=== PATIENT | female | born 1965 | race Caucasian/White ===

== ENCOUNTER 2019-03-13 23:09 | Inpatient (IN) | payer BC ==
[~2019-03-13] VITALS: Ht 160 cm; Wt 58.2 kg
[2019-03-14] VITALS (12 sets, daily range): BP systolic 96–129; BP diastolic 46–65; PULSE 48–82; RESP 17–18; Ht 160 cm; Wt 58.2 kg
[2019-03-14] MEDS ORDERED: METR-122 PO (01:53)
[2019-03-14] MEDS ORDERED: SIMV40TA2 PO (01:53)
[2019-03-14] MEDS: DEXTROSE 5%-0.9% NACL 1,000 ML IV SCH ×2 (04:50→17:10)
[2019-03-14] MEDS: PANTOPRAZOLE 40 MG INJ IV SCH (05:41)
[2019-03-14] MEDS: ACETAMINOPHEN 325 MG TAB PO PRN (06:28)
[2019-03-14] MEDS: morphine 2 MG INJ IV PRN ×3 (11:23→21:34)
[2019-03-14] MEDS: ONDANSETRON 4 MG INJ IV PRN (11:23)
--- NOTE | 2019-03-14 12:42 | QN ---
Documentation Comment SEEN AND EXAMINED JANAE BERNAL MD March 14, 2019 12:42
--- NOTE | 2019-03-14 13:57 | CONS ---
Assessment/Plan Assessment/Plan Hospital Course (Demo Recall) Summary Assessment and Plan: Assessment: Elevated lipase with presumed pancreatitis Upper abdominal pain Diarrhea Recently dx with H.pylori? Plan: Stool studies CT abd/pelvis with contrast Consider endoscopic evaluation pending results of imaging and clinical course NPO, push IVF Triglyceride/IgG labs ordered Monitor labs Pain management Patient is seen in collaboration with Dr. Alvarez CC: KARLOS ALVAREZ MD ; Consultation Date/Type/Reason Admit Date/Time March 14, 2019 at 00:55 Date/Time of Note DATE: 03/14/19 TIME: 13:43 Hx of Present Illness This is a 53-year-old female with no significant past medical history who presented to an outside hospital with complaints of epigastric pain x5 days. Patient states pain was associated with nausea, no vomiting, and with pain radiating to the back. She also complains of irregular bowel habits for the past 3 months from watery diarrhea to soft stool. She states she was recently diagnosed with H. pylori and started on metronidazole, However she feels this medication made her pain worse and has stopped taking. Evaluation the outside hospital patient had a complete abdominal ultrasound impression reads normal abdominal sonogram and bile duct measuring 2.9 mm and normal gallbladder tension of cholelithiasis labs were obtained showing normal LFTs, normal WBC and no evidence of anemia. Labs did show an elevated lipase. After been deemed stable she was transferred to [facility] for ins reasons. Additional labs were obtained here patient's lipase noted to be slightly over thousand with normocytic anemia, mild and normal LFTs. At time of evaluation patient continues to complain of upper abdominal pain some nausea. Discussed plan to obtain additional imaging and to follow-up on additional lab testing. She denies ETOH use, smoking, or drug use. Of note patient is scheduled to have EGD/Colonoscopy as an out-pt in about 3 months. Past Medical History Home Meds Reported Medications Metronidazole* (Metronidazole*) 500 Mg Tablet, 500 MG PO TID, TAB 03/14/19 Simvastatin* (Zocor*) 40 Mg Tablet, 40 MG PO QHS, #30 TAB 03/14/19 Medications Current Medications Pantoprazole (Protonix Iv) 40 mg DAILY@06 IV Last administered on 03/14/19at 05:41; Admin Dose 40 MG; Start 03/14/19 at 06:00 Ondansetron HCl (Zofran Inj) 4 mg Q6H PRN IV NAUSEA AND/OR VOMITING Last administered on 03/14/19 11:23; Admin Dose 4 MG; Start 03/14/19 at 05:00 Morphine Sulfate (morphine) 2 mg Q4H PRN IV SEVERE PAIN LEVEL 7-10 Last administered on 03/14/19 11:23; Admin Dose 2 MG; Start 03/14/19 at 05:00 Acetaminophen (Tylenol Tab) 650 mg Q6H PRN PO MILD PAIN(1-3)OR ELEVATED TEMP Last administered on 03/14/19 06:28; Admin Dose 650 MG; Start 03/14/19 at 05:00 Dextrose/Sodium Chloride 1,000 ml @ 100 mls/hr Q10H IV Last administered on 03/14/19 04:50; Admin Dose 100 MLS/HR; Start 03/14/19 at 05:00 Allergies: Coded Allergies: aspirin (Verified Allergy, Mild, UPSET STOMACH, 12/07/09) Social History Smoking Status: Never smoker Exam/Review of Systems Exam Vitals Vital Signs Date Temp Pulse Resp B/P (MAP) Pulse Ox O2 O2 Flow FiO2 Time Delivery Rate 03/14/19 63 12:04 03/14/19 97.9 17 118/65 97 11:31 (82) 03/14/19 Room Air 04:30 Intake and Output 03/13/19 03/13/19 03/14/19 1515:00 23:00 07:00 IntakeIntake Total 230 ml BalanceBalance 230 ml Exam PHYSICAL EXAMINATION: GENERAL: Well developed, well nourished, alert & oriented x 3, in no acute distress SKIN: No lesions, no stigmata chronic liver disease, no evidence of bleeding diathesis HEAD: Normocephalic, atraumatic, no tenderness. EYES: Pupils equal reactive to light and accommodation, full extraocular movements, sclera clear, non-icteric, no discharge. EARS/NOSE AND THROAT: Ears normal, nose normal, oropharynx normal, oral membranes well hydrated without lesions. NECK: Supple, no masses, thyroid normal, JVP within normal limits, carotids normal without bruits. CHEST: Inspection within normal limits. CARDIOVASCULAR: Heart: Regular rate and rhythm, no murmurs, gallops or rubs. Peripheral pulses present within normal limits, no cyanosis, clubbing or edemas. No pulsatile abdominal mass RESPIRATORY: Lungs clear to auscultation and percussion, no wheezing, no rubs GASTROINTESTINAL AND LIVER: Abdomen: Soft, upper abdominal tenderness, non- distended, no hernias, no masses, no organomegaly, no ascites, no guarding, no rebound tenderness, normoactive bowel sounds. Rectal: Deferred. GENITOURINARY:[Female genitalia within normal limits.] EXTREMITIES: No cyanosis, clubbing or edema. Results Result Diagram: 03/14/19 0536 03/14/19 0536 Results 24hrs Laboratory Tests Test 03/14/19 05:36 White Blood Count 10.6 Red Blood Count 3.96 L Hemoglobin 11.6 L Hematocrit 36.4 L Mean Corpuscular Volume 91.9 Mean Corpuscular Hemoglobin 29.3 Mean Corpuscular Hemoglobin Concent 31.9 L Red Cell Distribution Width 13.2 Platelet Count 342 Mean Platelet Volume 9.9 Immature Granulocytes % 0.400 Neutrophils % 57.3 Lymphocytes % 24.3 Monocytes % 8.4 Eosinophils % 8.9 H Basophils % 0.7 Nucleated Red Blood Cells % 0.0 Immature Granulocytes # 0.040 H Neutrophils # 6.1 Lymphocytes # 2.6 Monocytes # 0.9 Eosinophils # 0.9 H Basophils # 0.1 Nucleated Red Blood Cells # 0.0 Sodium Level 143 Potassium Level 4.2 Chloride Level 110 Carbon Dioxide Level 27 Anion Gap 6 Blood Urea Nitrogen 6 L Creatinine 0.71 Est Glomerular Filtrat Rate mL/min > 60 Glucose Level 103 Calcium Level 8.7 Total Bilirubin 0.6 Direct Bilirubin 0.00 Indirect Bilirubin 0.6 Aspartate Amino Transf (AST/SGOT) 18 Alanine Aminotransferase (ALT/SGPT) 18 Alkaline Phosphatase 93 Total Protein 6.6 Albumin 3.3 Globulin 3.30 H Albumin/Globulin Ratio 1.00 Lipase 1005 H Medications Medication Current Medications Pantoprazole (Protonix Iv) 40 mg DAILY@06 IV Last administered on 03/14/19at 05:41; Admin Dose 40 MG; Start 03/14/19 at 06:00 Ondansetron HCl (Zofran Inj) 4 mg Q6H PRN IV NAUSEA AND/OR VOMITING Last administered on 03/14/19at 11:23; Admin Dose 4 MG; Start 03/14/19 at 05:00 Morphine Sulfate (morphine) 2 mg Q4H PRN IV SEVERE PAIN LEVEL 7-10 Last administered on 03/14/19 11:23; Admin Dose 2 MG; Start 03/14/19 at 05:00 Acetaminophen (Tylenol Tab) 650 mg Q6H PRN PO MILD PAIN(1-3)OR ELEVATED TEMP Last administered on 03/14/19at 06:28; Admin Dose 650 MG; Start 03/14/19 at 05:00 Dextrose/Sodium Chloride 1,000 ml @ 100 mls/hr Q10H IV Last administered on 03/14/19at 04:50; Admin Dose 100 MLS/HR; Start 03/14/19 at 05:00 AUREA MANDUJANO March 14, 2019 13:56
--- NOTE | 2019-03-14 14:13 | HP ---
DATE OF ADMISSION: 03/14/2019 REASON FOR ADMISSION: Transfer from [facility] secondary to abdominal pain, pancreatitis. HISTORY OF PRESENTING ILLNESS: This is a 53-year-old female with a past medical history of gastritis , hyperlipidemia, went to the [facility] on 03/13/2019 secondary to severe epigastric pain f or past 1 week. According to the patient, she has been having severe epigastric pain for past 1 week intermittently on and off. She was diagnosed by her PMD to have positive Helicobacter pylori. She was supposed to see GI specialist in outpatient. She was supposed to have an EGD and colonoscopy as an outpatient; however it was in 4 months' time. Her pain was getting worse and she came to the [facility]. According to the patient, she has been also having some bright red blood per rectu m intermittently along with diarrhea for past 4 to 5 months. She has had colonoscopy before which arauz s been normal according to her many years ago. The patient does not take any aspirin. The patient d enies any alcohol intake. On arrival to [facility], the patient had lipase which was 423, s odium of 148, potassium 3.8, chloride 107, bicarbonate 22, BUN of 8, creatinine 0.65. LFTs showed to mirian bilirubin 0.2, alkaline phosphatase is 105. Troponin negative. UA was negative. The patient arauz d an abdominal ultrasound that showed liver 14 cm, gallbladder normal and it was normal abdominal son ogram and was transferred due to insurance reasons. PAST MEDICAL HISTORY: 1. History of gastritis. 2. History of hemorrhoids. ALLERGIES: ASPIRIN. MEDICATIONS TAKING AT HOME: 1. Flagyl. 2. Zocor. SOCIAL HISTORY: Denies any history of smoking, alcohol or any drug use. Lives in [place]. PAST SURGICAL HISTORY: 1. Oophorectomy. 2. Nose surgery. 3. Status post EGD and a colonoscopy. FAMILY HISTORY: Noncontributory. REVIEW OF SYSTEMS: The patient complained of severe epigastric pain. Denied any bright red blood pe r rectum. Denied any hematemesis, any melena. Also has been having some nausea. Denied any headach e, any blurry vision. Denies any chest pain, any shortness of breath, orthopnea, PND, lower extremit y edema. PHYSICAL EXAMINATION: VITAL SIGNS: Currently blood pressure 118/65, heart rate 59, afebrile, saturating 97% on room air. GENERAL: The patient is awake, alert, oriented, appears to be in mild distress secondary to pain. HEENT: Pupils are equal, round, reactive to light. No scleral icterus. NECK: Supple. No JVD. HEART: Regular rate and rhythm. LUNGS: Clear to auscultate bilaterally. ABDOMEN: Some tenderness present in the epigastric region. Positive bowel sounds. EXTREMITIES: No clubbing, cyanosis or edema. LABORATORY DATA: Show lipase of 1005. White count of 10.6, hemoglobin 11.6, platelet count of 342. DIAGNOSTIC DATA: Abdominal ultrasound done at an outside hospital showed normal. ASSESSMENT AND PLAN: This is a 53-year-old female who presented with: 1. Epigastric pain with elevated lipase. It could be secondary to pancreatitis; however no etiology at this time. The patient denies any history of alcohol abuse and there were no gallstones on abdom inal ultrasound. The patient also had history of gastritis in the past and also has history of Helic obacter pylori rectum. 2. Bright red blood per rectum. Rule out lower gastrointestinal bleed. 3. Epigastric pain could be secondary to pancreatitis/gastritis/peptic ulcer. 4. Hyperlipidemia. 5. Elevated lipase. 6. History of oophorectomy. PLAN: At this period of time, the patient is admitted to med/surg. The patient will be kept n.p.o., started on IV fluids, pain control, Zofran, PPI. GI consultation has already been obtained. The pa tient will likely need both EGD and colonoscopy. Rest of the treatment will depend on the patient's hospitalization course. Dictated By: JANAE MC/CHINTAN Conf#: [id number] DID#: [id number] CC: JHONY ARNOLD MD;*EndCC*
[2019-03-14] MEDS ORDERED: BARIUM SULF 2% 450 ML BTL (BERRY SMOOTHIE) PO ONE (15:00)
[2019-03-14] MEDS ORDERED: IOHEXOL 300MG/ML 150 ML BTL ONE (19:24)
[2019-03-14] MEDS ORDERED: SOD CHLORIDE 0.9% 100 ML ONE (19:24)
[2019-03-15] MEDS: DEXTROSE 5%-0.9% NACL 1,000 ML IV SCH ×3 (00:19→23:10)
[2019-03-15] MEDS: morphine 2 MG INJ IV PRN (00:19)
[2019-03-15 00:42] VITALS: BP 118/57; PULSE 66; RESP 16
[2019-03-15] MEDS: PANTOPRAZOLE 40 MG INJ IV SCH ×2 (06:04→23:10)
[2019-03-15] MEDS: ACETAMINOPHEN 325 MG TAB PO PRN (06:05)
[2019-03-15 08:01] VITALS: BP 92/46; PULSE 71; RESP 20
[2019-03-15 10:43] VITALS: BP 99/46; PULSE 55; RESP 18
--- NOTE | 2019-03-15 13:35 | PN ---
Date/Time of Note Date/Time of Note DATE: 03/15/19 TIME: 13:31 Assessment/Plan VTE Prophylaxis Risk score (from Nsg)>0 risk: 1 SCD applied (from Nsg): Yes Pharmacological prophylaxis: other (scds) Lines/Catheters IV Catheter Type (from Nrsg): Peripheral IV Urinary Cath still in place: No Assessment/Plan Hospital Course Assessment: Elevated lipase with presumed pancreatitis -Lipase down today -Normal amylase -Unremarkable pancreas on CT with contrast Upper abdominal pain Diarrhea -Mild generalized left colonic wall thickening suggests a nonspecific colitis. On CT scan -CDIFF - negative Recently dx with H.pylori? Plan: Pt continues to c/o epigastric pain- described as burning/acid- increased PPI to BID Findings of CT scan noted- will plan for EGD/Colonoscopy tomorrow (03/16/19) Discussed benefits/risks of sedation and procedure- understanding was verbalized and agreed to move forward with procedure Monitor labs Pain management Patient is seen in collaboration with Dr. Alvarez Subjective: Course reviewed with nursing staff Patient interviewed and examined All labs, imaging and other results reviewed The patient resting in bed, continues to c/o epigastric pain, less diarrhea noted. Discussed results of CT scan CDIFF neg- No c/o n/v , family at bedside. Exam PHYSICAL EXAMINATION: GENERAL: Well developed, well nourished, alert & oriented x 3, in no acute distress SKIN: No lesions, no stigmata chronic liver disease, no evidence of bleeding diathesis HEAD: Normocephalic, atraumatic, no tenderness. EYES: Pupils equal reactive to light and accommodation, full extraocular movements, sclera clear, non-icteric, no discharge. EARS/NOSE AND THROAT: Ears normal, nose normal, oropharynx normal, oral membranes well hydrated without lesions. NECK: Supple, no masses, thyroid normal, JVP within normal limits, carotids no rmal without bruits. CHEST: Inspection within normal limits. CARDIOVASCULAR: Heart: Regular rate and rhythm, no murmurs, gallops or rubs. Peripheral pulses present within normal limits, no cyanosis, clubbing or edemas. No pulsatile abdominal mass RESPIRATORY: Lungs clear to auscultation and percussion, no wheezing, no rubs GASTROINTESTINAL AND LIVER: Abdomen: Soft, upper abdominal tenderness, non- distended, no hernias, no masses, no organomegaly, no ascites, no guarding, no rebound tenderness, normoactive bowel sounds. Rectal: Deferred. GENITOURINARY:[Female genitalia within normal limits.] EXTREMITIES: No cyanosis, clubbing or edema. Result Diagram: 03/15/1952403/15/19524 Results 24hrs Laboratory Tests Test 03/14/19 14:00 03/15/19 05:25 Prothrombin Time 12.7 Prothrombin Time Ratio 1.0 INR International Normalized Ratio 0.94 White Blood Count 8.5 Red Blood Count 3.96 L Hemoglobin 11.6 L Hematocrit 36.0 L Mean Corpuscular Volume 90.9 Mean Corpuscular Hemoglobin 29.3 Mean Corpuscular Hemoglobin Concent 32.2 Red Cell Distribution Width 13.2 Platelet Count 333 Mean Platelet Volume 10.0 Immature Granulocytes % 0.400 Neutrophils % 58.3 Lymphocytes % 24.5 Monocytes % 9.6 Eosinophils % 6.7 Basophils % 0.5 Nucleated Red Blood Cells % 0.0 Immature Granulocytes # 0.030 Neutrophils # 4.9 Lymphocytes # 2.1 Monocytes # 0.8 Eosinophils # 0.6 H Basophils # 0.0 Nucleated Red Blood Cells # 0.0 Sodium Level 141 Potassium Level 3.9 Chloride Level 109 Carbon Dioxide Level 26 Anion Gap 6 Blood Urea Nitrogen 3 L Creatinine 0.69 Est Glomerular Filtrat Rate mL/min > 60 Glucose Level 103 Calcium Level 8.6 Phosphorus Level 4.0 Magnesium Level 2.0 Total Bilirubin 0.6 Direct Bilirubin 0.00 Indirect Bilirubin 0.6 Aspartate Amino Transf (AST/SGOT) 17 Alanine Aminotransferase (ALT/SGPT) 18 Alkaline Phosphatase 82 Total Protein 6.3 Albumin 3.2 L Globulin 3.10 Albumin/Globulin Ratio 1.03 Triglycerides Level 95 Cholesterol Level 122 LDL Cholesterol, Calculated 84 HDL Cholesterol 19 L Cholesterol/HDL Ratio 6.4 Amylase Level 99 Lipase 594 H Exam/Review of Systems Exam Vitals Vital Signs Date Temp Pulse Resp B/P (MAP) Pulse Ox O2 O2 Flow FiO2 Time Delivery Rate 03/15/19 98.2 55 18 99/46 (63) 96 Room Air 10:43 Intake and Output 03/14/19 03/14/19 03/15/19 1515:00 23:00 07:00 IntakeIntake Total 1440 ml 500 ml BalanceBalance 1440 ml 500 ml Results Results 24hrs Laboratory Tests Test 03/14/19 14:00 03/15/19 05:25 Prothrombin Time 12.7 Prothrombin Time Ratio 1.0 INR International Normalized Ratio 0.94 White Blood Count 8.5 Red Blood Count 3.96 L Hemoglobin 11.6 L Hematocrit 36.0 L Mean Corpuscular Volume 90.9 Mean Corpuscular Hemoglobin 29.3 Mean Corpuscular Hemoglobin Concent 32.2 Red Cell Distribution Width 13.2 Platelet Count 333 Mean Platelet Volume 10.0 Immature Granulocytes % 0.400 Neutrophils % 58.3 Lymphocytes % 24.5 Monocytes % 9.6 Eosinophils % 6.7 Basophils % 0.5 Nucleated Red Blood Cells % 0.0 Immature Granulocytes # 0.030 Neutrophils # 4.9 Lymphocytes # 2.1 Monocytes # 0.8 Eosinophils # 0.6 H Basophils # 0.0 Nucleated Red Blood Cells # 0.0 Sodium Level 141 Potassium Level 3.9 Chloride Level 109 Carbon Dioxide Level 26 Anion Gap 6 Blood Urea Nitrogen 3 L Creatinine 0.69 Est Glomerular Filtrat Rate mL/min > 60 Glucose Level 103 Calcium Level 8.6 Phosphorus Level 4.0 Magnesium Level 2.0 Total Bilirubin 0.6 Direct Bilirubin 0.00 Indirect Bilirubin 0.6 Aspartate Amino Transf (AST/SGOT) 17 Alanine Aminotransferase (ALT/SGPT) 18 Alkaline Phosphatase 82 Total Protein 6.3 Albumin 3.2 L Globulin 3.10 Albumin/Globulin Ratio 1.03 Triglycerides Level 95 Cholesterol Level 122 LDL Cholesterol, Calculated 84 HDL Cholesterol 19 L Cholesterol/HDL Ratio 6.4 Amylase Level 99 Lipase 594 H Medications Medication Current Medications Pantoprazole (Protonix Iv) 40 mg DAILY@06 IV Last administered on 03/15/19at 06:04; Admin Dose 40 MG; Start 03/14/19 at 06:00 Ondansetron HCl (Zofran Inj) 4 mg Q6H PRN IV NAUSEA AND/OR VOMITING Last administered on 03/14/19at 11:23; Admin Dose 4 MG; Start 03/14/19 at 05:00 Morphine Sulfate (morphine) 2 mg Q4H PRN IV SEVERE PAIN LEVEL 7-10 Last administered on 03/15/19at 00:19; Admin Dose 2 MG; Start 03/14/19 at 05:00 Acetaminophen (Tylenol Tab) 650 mg Q6H PRN PO MILD PAIN(1-3)OR ELEVATED TEMP Last administered on 03/15/19at 06:05; Admin Dose 650 MG; Start 03/14/19 at 05:00 Dextrose/Sodium Chloride 1,000 ml @ 100 mls/hr Q10H IV Last administered on 03/15/19at 11:33; Admin Dose 100 MLS/HR; Start 03/14/19 at 05:00 AUREA MANDUJANO March 15, 2019 13:35
[2019-03-15] MEDS ORDERED: BISACODYL (EC) 5 MG TAB PO ONE (15:00)
[2019-03-15] MEDS ORDERED: PANTOPRAZOLE 40 MG INJ IV ONE (15:00)
--- NOTE | 2019-03-15 15:49 | PN ---
Date/Time of Note Date/Time of Note DATE: 03/15/19 TIME: 15:47 Assessment/Plan VTE Prophylaxis Risk score (from Ns)>0 risk: 1 SCD applied (from Ns): Yes Pharmacological prophylaxis: NA/contraindicated Pharm contraindication: low risk/ambulating Lines/Catheters IV Catheter Type (from [facility]): Peripheral IV Urinary Cath still in place: No Assessment/Plan Assessment/Plan his is a 53-year-old female who presented with: 1. Epigastric pain with elevated lipase. It could be secondary to pancreatitis; however no etiology at this time. The patient denies any history of alcohol abuse and there were no gallstones on abdominal ultrasound. The patient also had history of gastritis in the past and also has history of Helicobacter pylori rectum. 2. Bright red blood per rectum. Rule out lower gastrointestinal bleed./colitis 3. Epigastric pain could be secondary to pancreatitis/gastritis/peptic ulcer. 4. Hyperlipidemia. 5. Elevated lipase. 6. History of oophorectomy. plan - lipase improved, pain resolved - lipid panel nega and IG pending - cld - egd and colonoscopy tmw - PPI - C diff neg Result Diagram: 03/15/19 0525 03/15/19 0525 Results 24hrs Laboratory Tests Test 03/15/19 05:25 White Blood Count 8.5 Red Blood Count 3.96 L Hemoglobin 11.6 L Hematocrit 36.0 L Mean Corpuscular Volume 90.9 Mean Corpuscular Hemoglobin 29.3 Mean Corpuscular Hemoglobin Concent 32.2 Red Cell Distribution Width 13.2 Platelet Count 333 Mean Platelet Volume 10.0 Immature Granulocytes % 0.400 Neutrophils % 58.3 Lymphocytes % 24.5 Monocytes % 9.6 Eosinophils % 6.7 Basophils % 0.5 Nucleated Red Blood Cells % 0.0 Immature Granulocytes # 0.030 Neutrophils # 4.9 Lymphocytes # 2.1 Monocytes # 0.8 Eosinophils # 0.6 H Basophils # 0.0 Nucleated Red Blood Cells # 0.0 Sodium Level 141 Potassium Level 3.9 Chloride Level 109 Carbon Dioxide Level 26 Anion Gap 6 Blood Urea Nitrogen 3 L Creatinine 0.69 Est Glomerular Filtrat Rate mL/min > 60 Glucose Level 103 Calcium Level 8.6 Phosphorus Level 4.0 Magnesium Level 2.0 Total Bilirubin 0.6 Direct Bilirubin 0.00 Indirect Bilirubin 0.6 Aspartate Amino Transf (AST/SGOT) 17 Alanine Aminotransferase (ALT/SGPT) 18 Alkaline Phosphatase 82 Total Protein 6.3 Albumin 3.2 L Globulin 3.10 Albumin/Globulin Ratio 1.03 Triglycerides Level 95 Cholesterol Level 122 LDL Cholesterol, Calculated 84 HDL Cholesterol 19 L Cholesterol/HDL Ratio 6.4 Amylase Level 99 Lipase 594 H Subjective 24 Hr Interval Summary Free Text/Dictation feels better no diarrhoea Exam/Review of Systems Exam Vitals Vital Signs Date Temp Pulse Resp B/P (MAP) Pulse Ox O2 O2 Flow FiO2 Time Delivery Rate 03/15/19 98.2 55 18 99/46 (63) 96 Room Air 10:43 Intake and Output 03/14/19 03/14/19 03/15/19 1515:00 23:00 07:00 IntakeIntake Total 1440 ml 500 ml BalanceBalance 1440 ml 500 ml Exam ENERAL: The patient is awake, alert, oriented, appears to be in mild distress secondary to pain. HEENT: Pupils are equal, round, reactive to light. No scleral icterus. NECK: Supple. No JVD. HEART: Regular rate and rhythm. LUNGS: Clear to auscultate bilaterally. ABDOMEN: no tenderness. Positive bowel sounds. EXTREMITIES: No clubbing, cyanosis or edema. Results Results 24hrs Laboratory Tests Test 03/15/19 05:25 White Blood Count 8.5 Red Blood Count 3.96 L Hemoglobin 11.6 L Hematocrit 36.0 L Mean Corpuscular Volume 90.9 Mean Corpuscular Hemoglobin 29.3 Mean Corpuscular Hemoglobin Concent 32.2 Red Cell Distribution Width 13.2 Platelet Count 333 Mean Platelet Volume 10.0 Immature Granulocytes % 0.400 Neutrophils % 58.3 Lymphocytes % 24.5 Monocytes % 9.6 Eosinophils % 6.7 Basophils % 0.5 Nucleated Red Blood Cells % 0.0 Immature Granulocytes # 0.030 Neutrophils # 4.9 Lymphocytes # 2.1 Monocytes # 0.8 Eosinophils # 0.6 H Basophils # 0.0 Nucleated Red Blood Cells # 0.0 Sodium Level 141 Potassium Level 3.9 Chloride Level 109 Carbon Dioxide Level 26 Anion Gap 6 Blood Urea Nitrogen 3 L Creatinine 0.69 Est Glomerular Filtrat Rate mL/min > 60 Glucose Level 103 Calcium Level 8.6 Phosphorus Level 4.0 Magnesium Level 2.0 Total Bilirubin 0.6 Direct Bilirubin 0.00 Indirect Bilirubin 0.6 Aspartate Amino Transf (AST/SGOT) 17 Alanine Aminotransferase (ALT/SGPT) 18 Alkaline Phosphatase 82 Total Protein 6.3 Albumin 3.2 L Globulin 3.10 Albumin/Globulin Ratio 1.03 Triglycerides Level 95 Cholesterol Level 122 LDL Cholesterol, Calculated 84 HDL Cholesterol 19 L Cholesterol/HDL Ratio 6.4 Amylase Level 99 Lipase 594 H Medications Medication Current Medications Ondansetron HCl (Zofran Inj) 4 mg Q6H PRN IV NAUSEA AND/OR VOMITING Last administered on 03/14/19at 11:23; Admin Dose 4 MG; Start 03/14/19 at 05:00 Morphine Sulfate (morphine) 2 mg Q4H PRN IV SEVERE PAIN LEVEL 7-10 Last administered on 03/15/19at 00:19; Admin Dose 2 MG; Start 03/14/19 at 05:00 Acetaminophen (Tylenol Tab) 650 mg Q6H PRN PO MILD PAIN(1-3)OR ELEVATED TEMP Last administered on 03/15/19at 06:05; Admin Dose 650 MG; Start 03/14/19 at 05:00 Dextrose/Sodium Chloride 1,000 ml @ 100 mls/hr Q10H IV Last administered on 03/15/19at 11:33; Admin Dose 100 MLS/HR; Start 03/14/19 at 05:00 Magnesium Citrate (Citroma) 300 ml ONCE ONCE PO ; Start 03/15/19 at 17:30; Stop 03/15/19 at 17:31 Polyethylene Glycol (Miralax) 119 gm ONCE ONCE PO ; Start 03/15/19 at 18:30; Stop 03/15/19 at 18:31 Polyethylene Glycol (Miralax) 119 gm 2ND DOSE (GI PREP) ONCE PO ; Start 03/16/19 at 06:00; Stop 03/16/19 at 06:01 Bisacodyl (Dulcolax) 10 mg 2ND DOSE (GI PREP) ONCE PO ; Start 03/16/19 at 08:00; Stop 03/16/19 at 08:01 Pantoprazole (Protonix Iv) 40 mg BID@06,18 IV ; Start 03/15/19 at 21:00 JANAE BERNAL MD March 15, 2019 15:49
[2019-03-15] MEDS ORDERED: MAGNESIUM CITRATE 300 ML BTL PO ONE (17:30)
--- NOTE | 2019-03-15 17:34 | PREAC ---
Date/Time of Note Date/Time of Note DATE: 03/15/19 TIME: 17:33 Anesthesia Eval and Record Evaluation Time Pre-Procedure Interview DATE: 03/15/19 TIME: 17:33 Age 53 Sex female NPO: 8 hrs Preoperative diagnosis epigastric pain Planned procedure EGD / colonoscopy Past Medical History Past Medical History: Includes Cardio: Dyslipidemia Surgery & Anesthesia Issues No known issue Meds Anticoagulation: No Beta Caden within 24 hr: No Reason Beta Caden not given: Pt. not on B-Caden Reported Medications Metronidazole* (Metronidazole*) 500 Mg Tablet, 500 MG PO TID, TAB 03/14/19 Simvastatin* (Zocor*) 40 Mg Tablet, 40 MG PO QHS, #30 TAB 03/14/19 Current Medications Ondansetron HCl (Zofran Inj) 4 mg Q6H PRN IV NAUSEA AND/OR VOMITING Last administered on 03/14/19at 11:23; Admin Dose 4 MG; Start 03/14/19 at 05:00 Morphine Sulfate (morphine) 2 mg Q4H PRN IV SEVERE PAIN LEVEL 7-10 Last adm inistered on 03/15/19at 00:19; Admin Dose 2 MG; Start 03/14/19 at 05:00 Acetaminophen (Tylenol Tab) 650 mg Q6H PRN PO MILD PAIN(1-3)OR ELEVATED TEMP Last administered on 03/15/19at 06:05; Admin Dose 650 MG; Start 03/14/19 at 05:00 Dextrose/Sodium Chloride 1,000 ml @ 50 mls/hr Q20H IV Last administered on 03/15/19at 11:33; Admin Dose 100 MLS/HR; Start 03/14/19 at 05:00 Polyethylene Glycol (Miralax) 119 gm ONCE ONCE PO ; Start 03/15/19 at 18:30; Stop 03/15/19 at 18:31 Polyethylene Glycol (Miralax) 119 gm 2ND DOSE (GI PREP) ONCE PO ; Start 03/16/19 at 06:00; Stop 03/16/19 at 06:01 Bisacodyl (Dulcolax) 10 mg 2ND DOSE (GI PREP) ONCE PO ; Start 03/16/19 at 08:00; Stop 03/16/19 at 08:01 Pantoprazole (Protonix Iv) 40 mg BID@06,18 IV ; Start 5/21/19 at 21:00 Meds reviewed: Yes Allergies Coded Allergies: aspirin (Verified Allergy, Mild, UPSET STOMACH, 12/07/09) Allergies Reviewed: Yes Labs/Studies Labs Reviewed: Reviewed by anesthesiologist Result Diagram: 03/15/1952403/15/19 05 Laboratory Tests 03/15/19 05:25 test: N/A Studies: ECG Pre-procedure Exam Last vitals Vital Signs Date Temp Pulse Resp B/P (MAP) Pulse Ox O2 O2 Flow FiO2 Time Delivery Rate 03/15/19 98.2 55 18 99/46 (63) 96 Room Air 10:43 Airway: Adequate mouth opening Mallampati: Mallampati II Teeth: Normal Lung: Normal Heart: Normal ASA Physical Status ASA physical status: 2 Emergency: None Planned Anesthetic General/MAC: MAC Pre-operative Attestations Prior to commencing anesthesia and surgery, the patient was re-evaluated, there was verification of: *The patient's identity *The results of appropriate recent lab work and preoperative vital signs *The above evaluation not changing prior to induction *Anesthetic plan, risk benefits, alternative and complications discussed with patient/family; questions answered; patient/family understands, accepts and wishes to proceed. WARREN DELACRUZ March 15, 2019 17:34
[2019-03-15] MEDS ORDERED: PANTOPRAZOLE 40 MG INJ IV SCH (18:00)
[2019-03-15] MEDS ORDERED: POLYETHYLENE GLYCOL 3350 119 GM POWDER PO ONE (18:30)
[2019-03-15 19:52] VITALS: BP 102/60; PULSE 73; RESP 18
[2019-03-16] VITALS (12 sets, daily range): BP systolic 102–127; BP diastolic 43–59; PULSE 53–73; RESP 15–25
[2019-03-16] MEDS: PANTOPRAZOLE 40 MG INJ IV SCH ×2 (05:55→18:22)
[2019-03-16] MEDS ORDERED: POLYETHYLENE GLYCOL 3350 119 GM POWDER PO ONE (06:00)
[2019-03-16] MEDS ORDERED: BISACODYL (EC) 5 MG TAB PO ONE (08:00)
[2019-03-16] MEDS: ONDANSETRON 4 MG INJ IV PRN (08:31)
--- NOTE | 2019-03-16 13:49 | PN ---
Date/Time of Note Date/Time of Note DATE: 03/16/19 TIME: 13:47 Assessment/Plan VTE Prophylaxis Risk score (from Ns)>0 risk: 2 SCD applied (from Ns): Yes Pharmacological prophylaxis: NA/contraindicated Pharm contraindication: low risk/ambulating Lines/Catheters [facility]from [facility]): Peripheral IV Urinary Cath still in place: No Assessment/Plan Assessment/Plan his is a 53-year-old female who presented with: 1. Epigastric pain with elevated lipase. It could be secondary to pancreatitis; however no etiology at this time. The patient denies any history of alcohol abuse and there were no gallstones on abdominal ultrasound. The patient also had history of gastritis in the past and also has history of Helicobacter pylori rectum. 2. Bright red blood per rectum. Rule out lower gastrointestinal bleed./colitis 3. Epigastric pain could be secondary to pancreatitis/gastritis/peptic ulcer. 4. Hyperlipidemia. 5. Elevated lipase. 6. History of oophorectomy. plan - EGD and colonoscopy today at 5 - PPI/zofran - iv fluids - C diff neg Result Diagram: 03/15/1925 03/15/1925 Results 24hrs Laboratory Tests Test 03/16/19 05:35 Lipase 437 H Subjective 24 Hr Interval Summary Free Text/Dictation Patient had a lot of bowel movements last night as was prepped for colonoscopy No nausea vomiting Exam/Review of Systems Exam Vitals Vital Signs Date Temp Pulse Resp B/P (MAP) Pulse Ox O2 O2 Flow FiO2 Time Delivery Rate 03/16/19 97.7 63 15 112/53 96 Room Air 07:26 (72) Exam ENERAL: The patient is awake, alert, oriented, HEENT: Pupils are equal, round, reactive to light. No scleral icterus. NECK: Supple. No JVD. HEART: Regular rate and rhythm. LUNGS: Clear to auscultate bilaterally. ABDOMEN: no tenderness. Positive bowel sounds. EXTREMITIES: No clubbing, cyanosis or edema. Results Results 24hrs Laboratory Tests Test 03/16/19 05:35 Lipase 437 H Medications Medication Current Medications Ondansetron HCl (Zofran Inj) 4 mg Q6H PRN IV NAUSEA AND/OR VOMITING Last administered on 03/16/19at 08:31; Admin Dose 4 MG; Start 03/14/19 at 05:00 Morphine Sulfate (morphine) 2 mg Q4H PRN IV SEVERE PAIN LEVEL 7-10 Last administered on 03/15/19at 00:19; Admin Dose 2 MG; Start 03/14/19 at 05:00 Acetaminophen (Tylenol Tab) 650 mg Q6H PRN PO MILD PAIN(1-3)OR ELEVATED TEMP Last administered on 03/15/19at 06:05; Admin Dose 650 MG; Start 03/14/19 at 05:00 Dextrose/Sodium Chloride 1,000 ml @ 50 mls/hr Q20H IV Last administered on 03/15/19at 23:10; Admin Dose 50 MLS/HR; Start 03/14/19 at 05:00 Pantoprazole (Protonix Iv) 40 mg BID@06,18 IV Last administered on 03/16/19at 05:55; Admin Dose 40 MG; Start 03/15/19 at 21:00 JANAE BERNAL MD March 16, 2019 13:49
[2019-03-16] MEDS ORDERED: PROPOFOL 60 ML ONE (17:21)
--- NOTE | 2019-03-16 17:22 | PAC ---
Date/Time of Note Date/Time of Note DATE: 03/16/19 TIME: 17:22 Post-Anesthesia Notes Post-Anesthesia Note Last documented vital signs Vital Signs Date Temp Pulse Resp B/P (MAP) Pulse Ox O2 O2 Flow FiO2 Time Delivery Rate 03/16/19 98.3 73 16 111/53 95 Room Air 17:30 (72) Activity: WNL Respiratory function: WNL Cardiovascular function: WNL Mental status: Baseline Pain reasonably controlled: Yes Hydration appropriate: Yes Nausea/Vomiting absent: Yes GODWIN POSADA MD March 16, 2019 17:22
[2019-03-16] MEDS ORDERED: FENTAnyl 50 MCG/ML VIAL IV PRN (17:30)
[2019-03-16] MEDS ORDERED: LABETALOL HCL 20MG INJ IV PRN (17:30)
[2019-03-16] MEDS ORDERED: EPHEDrine 25 MG/5 ML SYG IV PRN (17:30)
[2019-03-16] MEDS ORDERED: HYDROmorphONE 1 MG/5 ML IV SYRINGE IV PRN (17:30)
[2019-03-16] MEDS ORDERED: ONDANSETRON 4 MG INJ IV PRN (17:30)
[2019-03-16] MEDS ORDERED: BARIUM SULF 2% 450 ML BTL (BERRY SMOOTHIE) PO ONE (18:30)
[2019-03-16] MEDS: ACETAMINOPHEN 325 MG TAB PO PRN (18:32)
[2019-03-16] MEDS: MESALAMINE (SR) 250 MG CAP PO SCH (20:23)
[2019-03-16] MEDS: DEXTROSE 5%-0.9% NACL 1,000 ML IV SCH (20:24)
[2019-03-17 02:00] VITALS: BP 122/70; PULSE 81; RESP 19
[2019-03-17] MEDS: PANTOPRAZOLE 40 MG INJ IV SCH (06:27)
[2019-03-17 07:29] VITALS: BP 119/54; PULSE 80; RESP 17
[2019-03-17] MEDS: MESALAMINE (SR) 250 MG CAP PO SCH ×4 (09:23→21:00)
[2019-03-17] MEDS: BUDESONIDE (EC) 3 MG CAP PO SCH (09:23)
[2019-03-17] MEDS: ACETAMINOPHEN 325 MG TAB PO PRN ×2 (09:24→21:05)
--- NOTE | 2019-03-17 12:21 | PN ---
Date/Time of Note Date/Time of Note DATE: 03/17/19 TIME: 12:05 Assessment/Plan VTE Prophylaxis Risk score (from Ns)>0 risk: 1 SCD applied (from Ns): Yes Pharmacological prophylaxis: other (scds) Lines/Catheters IV [facility]ter Type (from [facility]): Peripheral IV Urinary Cath still in place: No Assessment/Plan Hospital Course Assessment: Elevated lipase with presumed pancreatitis -Lipase down today -Normal amylase -Unremarkable pancreas on CT with contrast Upper abdominal pain EGD 03/16/2019 Mild gastritis. Rule out internal infection. Biopsies obtained Otherwise normal EGD Diarrhea -Mild generalized left colonic wall thickening suggests a nonspecific colitis. On CT scan -CDIFF - negative/stool cx- coliform Colonoscopy 03/16/2019 Moderately active colitis involving the left side of the colon with skip areas and again noted in the cecum. Distribution most consistent with Crohn's disease Ascending and transverse colon within normal limits Terminal ileum within normal limits Multiple biopsies obtained. Moderate-sized internal hemorrhoids Recently dx with H.pylori? Plan: CT enterography- pending Budesonide/mesalamine PPI changed to p.o. daily Await biopsy results Patient is seen in collaboration with Dr. Alvarez Subjective: Course reviewed with nursing staff Patient interviewed and examined All labs, imaging and other results reviewed Discussed results of EGD/colonoscopy- pt to be NPO for Ct enterography today No c/o n/v pt does have some abdominal pain 2/2 to colitis Exam PHYSICAL EXAMINATION: GENERAL: Alert & oriented x 3, in no acute distress SKIN: No lesions, no stigmata chronic liver disease, no evidence of bleeding diathesis HEAD: Normocephalic, atraumatic, no tenderness. EYES: Pupils equal reactive to light and accommodation, full extraocular movements, sclera clear, non-icteric, no discharge. EARS/NOSE AND THROAT: Ears normal, nose normal, oropharynx normal, oral membranes well hydrated without lesions. NECK: Supple, no masses, thyroid normal, JVP within normal limits, carotids normal without bruits. CHEST: Inspection within normal limits. CARDIOVASCULAR: Heart: Regular rate and rhythm, no murmurs, gallops or rubs. Peripheral pulses present within normal limits, no cyanosis, clubbing or edemas. No pulsatile abdominal mass RESPIRATORY: Lungs clear to auscultation and percussion, no wheezing, no rubs GASTROINTESTINAL AND LIVER: Abdomen: Soft, upper abdominal tenderness, non- distended, no hernias, no masses, no organomegaly, no ascites, no guarding, no rebound tenderness, normoactive bowel sounds. Rectal: Deferred. GENITOURINARY:[Female genitalia within normal limits.] EXTREMITIES: No cyanosis, clubbing or edema. Result Diagram: 03/15/1952403/15/19524 Exam/Review of Systems Exam Vitals Vital Signs Date Temp Pulse Resp B/P (MAP) Pulse Ox O2 O2 Flow FiO2 Time Delivery Rate 03/17/19 98.3 10:09 03/17/19 80 17 119/54 98 Room Air 07:29 (75) 03/16/19 10 16:40 Intake and Output 03/16/19 03/16/19 03/17/19 1515:00 23:00 07:00 IntakeIntake Total 500 ml 433 ml BalanceBalance 500 ml 433 ml Medications Medication Current Medications Ondansetron HCl (Zofran Inj) 4 mg Q6H PRN IV NAUSEA AND/OR VOMITING Last administered on 03/16/19 08:31; Admin Dose 4 MG; Start 03/14/19 at 05:00 Morphine Sulfate (morphine) 2 mg Q4H PRN IV SEVERE PAIN LEVEL 7-10 Last adm inistered on 03/15/19 00:19; Admin Dose 2 MG; Start 03/14/19 at 05:00 Acetaminophen (Tylenol Tab) 650 mg Q6H PRN PO MILD PAIN(1-3)OR ELEVATED TEMP Last administered on 03/17/19 09:24; Admin Dose 650 MG; Start 03/14/19 at 05:00 Pantoprazole (Protonix Iv) 40 mg BID@06,18 IV Last administered on 03/17/19 06:27; Admin Dose 40 MG; Start 03/15/19 at 21:00 Mesalamine (Pentasa) 1,000 mg QID PO Last administered on 03/17/19 09:23; Admin Dose 1,000 MG; Start 03/16/19 at 21:00 Budesonide (Entocort Ec) 9 mg DAILY PO Last administered on 03/17/19 09:23; Admin Dose 9 MG; Start 03/17/19 at 09:00 AUREA MANDUJANO March 17, 2019 12:21
--- NOTE | 2019-03-17 13:48 | PN ---
Date/Time of Note Date/Time of Note DATE: 03/17/19 TIME: 13:47 Assessment/Plan VTE Prophylaxis Risk score (from [facility])>0 risk: 1 SCD applied (from [facility]): Yes Pharmacological prophylaxis: NA/contraindicated Pharm contraindication: surgical contra Lines/Catheters [facility] (from [facility]): Peripheral IV Urinary Cath still in place: No Assessment/Plan Hospital Course 1. Epigastric pain with elevated lipase. It could be secondary to pancreatitis; however no etiology at this time. The patient denies any history of alcohol abuse and there were no gallstones on abdominal ultrasound. The patient also had history of gastritis in the past and also has history of Helicobacter pylori rectum. 2. Bright red blood per rectum. Rule out lower gastrointestinal bleed./colitis 3. Epigastric pain could be secondary to pancreatitis/gastritis/peptic ulcer. 4. Hyperlipidemia. 5. Elevated lipase. 6. History of oophorectomy. 7. Hypochromic normocytic Anemia 8. Dyslipidemia Assessment/Plan - EGD and colonoscopy resulted a s aossible Cron's disease - PPI/zofran - iv fluids - C diff neg -CT enterography- pending -Budesonide/mesalamine -GI prophylaxis PPI p.o. daily -DVT proph. surg contrindication -Await biopsy results Result Diagram: 03/15/1952403/15/19524 Subjective 24 Hr Interval Summary Constitutional: no complaints Gastrointestinal: pain Exam/Review of Systems Exam Vitals Vital Signs Date Temp Pulse Resp B/P (MAP) Pulse Ox O2 O2 Flow FiO2 Time Delivery Rate 03/17/19 98.3 10:09 03/17/19 80 17 119/54 98 Room Air 07:29 (75) 03/16/19 10 16:40 Intake and Output 03/16/19 03/16/19 03/17/19 1515:00 23:00 07:00 IntakeIntake Total 500 ml 433 ml BalanceBalance 500 ml 433 ml Constitutional: alert, oriented Eyes: nl conjunctiva Respiratory: clear to auscultation Cardiovascular: regular rate and rhythm Gastrointestinal: soft, rebound or guarding Medications Medication Current Medications Ondansetron HCl (Zofran Inj) 4 mg Q6H PRN IV NAUSEA AND/OR VOMITING Last administered on 03/16/19at 08:31; Admin Dose 4 MG; Start 03/14/19 at 05:00 Morphine Sulfate (morphine) 2 mg Q4H PRN IV SEVERE PAIN LEVEL 7-10 Last administered on 03/15/19at 00:19; Admin Dose 2 MG; Start 03/14/19 at 05:00 Acetaminophen (Tylenol Tab) 650 mg Q6H PRN PO MILD PAIN(1-3)OR ELEVATED TEMP Last administered on 03/17/19at 09:24; Admin Dose 650 MG; Start 03/14/19 at 05:00 Mesalamine (Pentasa) 1,000 mg QID PO Last administered on 03/17/19at 12:26; Admin Dose 1,000 MG; Start 03/16/19 at 21:00 Budesonide (Entocort Ec) 9 mg DAILY PO Last administered on 03/17/19at 09:23; Admin Dose 9 MG; Start 03/17/19 at 09:00 Pantoprazole (Protonix Tab) 40 mg DAILY@06 PO ; Start 03/18/19 at 06:00 KELLY SILVA March 17, 2019 13:48
[2019-03-17 14:13] VITALS: BP 102/51; PULSE 66; RESP 16
[2019-03-17 19:53] VITALS: BP 90/50; PULSE 76; RESP 18
[2019-03-18 01:56] VITALS: BP 105/56; PULSE 67; RESP 18
[2019-03-18] MEDS ORDERED: AL HYDROX/MG HYDROX/SIMETH 30 ML CUP PO PRN (03:00)
[2019-03-18] MEDS ORDERED: PANTOPRAZOLE (EC) 40 MG TAB PO SCH (06:00)
[2019-03-18] MEDS ORDERED: BARIUM SULFATE 0.1% 450 ML BTL (VOLUMEN) PO ONE (07:30)
[2019-03-18] MEDS: MESALAMINE (SR) 250 MG CAP PO SCH ×2 (09:00→15:18)
[2019-03-18] MEDS: BUDESONIDE (EC) 3 MG CAP PO SCH (09:00)
[2019-03-18] MEDS ORDERED: SOD CHLORIDE 0.9% 100 ML ONE (09:02)
[2019-03-18] MEDS ORDERED: IOHEXOL 100 ML ONE (09:02)
[2019-03-18] MEDS ORDERED: GLUCAGON 1 MG INJ ONE (09:25)
[2019-03-18] MEDS ORDERED: GLUCAGON 1 MG INJ IV ONE (09:30)
--- NOTE | 2019-03-18 11:36 | PN ---
Date/Time of Note Date/Time of Note DATE: 03/18/19 TIME: 11:34 Assessment/Plan VTE Prophylaxis Risk score (from Ns)>0 risk: 1 SCD applied (from [facility] [place]): Yes SCD contraindicated: low risk/ambulating Pharmacological prophylaxis: NA/contraindicated Pharm contraindication: low risk/ambulating Lines/Catheters [facility] [place] Urinary Cath still in place: No Assessment/Plan Hospital Course 1. Epigastric pain with elevated lipase. It could be secondary to pancreatitis; however no etiology at this time. The patient denies any history of alcohol abuse and there were no gallstones on abdominal ultrasound. The patient also had history of gastritis in the past and also has history of Helicobacter pylori rectum. 2. Bright red blood per rectum. Rule out lower gastrointestinal bleed./colitis 3. Epigastric pain could be secondary to pancreatitis/gastritis/peptic ulcer. 4. Hyperlipidemia. 5. Elevated lipase. 6. History of oophorectomy. 7. Hypochromic normocytic Anemia 8. Dyslipidemia Assessment/Plan - EGD and colonoscopy resulted a s possible Cron's disease - PPI/zofran -biopsy results are seen, neg. for H .pylori - iv fluids - C diff neg. H pylori neg. -CT enterography-showed ulcerative colitis -c/w Budesonide/mesalamine -GI prophylaxis PPI p.o. daily -DVT proph. surg contraindication, ambulation. Result Diagram: 03/15/1952403/15/19 05 Subjective 24 Hr Interval Summary Gastrointestinal: pain, decreased appetite, nausea Exam/Review of Systems Exam Vitals Vital Signs Date Temp Pulse Resp B/P (MAP) Pulse Ox O2 O2 Flow FiO2 Time Delivery Rate 03/18/19 98.0 67 18 105/56 97 01:56 (72) 03/17/19 Room Air 14:13 03/16/19 10 16:40 Intake and Output 03/17/19 03/17/19 03/18/19 1515:00 23:00 07:00 IntakeIntake Total 400 ml BalanceBalance 400 ml Constitutional: alert, oriented Head: normocephalic Eyes: nl conjunctiva Cardiovascular: regular rate and rhythm Gastrointestinal: soft Medications Medication Current Medications Ondansetron HCl (Zofran Inj) 4 mg Q6H PRN IV NAUSEA AND/OR VOMITING Last administered on 03/16/19 08:31; Admin Dose 4 MG; Start 03/14/19 at 05:00 Morphine Sulfate (morphine) 2 mg Q4H PRN IV SEVERE PAIN LEVEL 7-10 Last administered on 03/15/19 00:19; Admin Dose 2 MG; Start 03/14/19 at 05:00 Acetaminophen (Tylenol Tab) 650 mg Q6H PRN PO MILD PAIN(1-3)OR ELEVATED TEMP Last administered on 03/17/19 21:05; Admin Dose 650 MG; Start 03/14/19 at 05:00 Mesalamine (Pentasa) 1,000 mg QID PO Last administered on 03/17/19 21:00; Admin Dose 1,000 MG; Start 03/16/19 at 21:00 Budesonide (Entocort Ec) 9 mg DAILY PO Last administered on 03/17/19 09:23; Admin Dose 9 MG; Start 03/17/19 at 09:00 Pantoprazole (Protonix Tab) 40 mg DAILY@06 PO Last administered on 03/18/19 05:36; Admin Dose 40 MG; Start 03/18/19 at 06:00 Al Hydrox/Mg Hydrox/Simethicone (Mag-Al Plus) 30 ml Q6H PRN PO GASTROINTESTINAL UPSET Last administered on 03/18/19 03:40; Admin Dose 30 ML; Start 03/18/19 at 03:00 KELLY SILVA March 18, 2019 11:36
[2019-03-18 14:00] VITALS: BP 74/54; PULSE 99; RESP 18
--- NOTE | 2019-03-18 14:47 | PN ---
Date/Time of Note Date/Time of Note DATE: 03/18/19 TIME: 14:33 Assessment/Plan VTE Prophylaxis Risk score (from Ns)>0 risk: 1 SCD applied (from Ns): Yes Pharmacological prophylaxis: heparin Lines/Catheters IV [facility] (from [facility]): Saline Lock Urinary Cath still in place: No Assessment/Plan Assessment/Plan Assessment: Elevated lipase with presumed pancreatitis -Lipase down today -Normal amylase -Unremarkable pancreas on CT with contrast Upper abdominal pain EGD 03/16/2019 Mild gastritis. Rule out internal infection. Biopsies obtained Otherwise normal EGD Diarrhea -Mild generalized left colonic wall thickening suggests a nonspecific colitis. On CT scan -CDIFF - negative/stool cx- coliform Colonoscopy 03/16/2019 Moderately active colitis involving the left side of the colon with skip areas and again noted in the cecum. Distribution most consistent with Crohn's disease Ascending and transverse colon within normal limits Terminal ileum within normal limits Multiple biopsies obtained. Moderate-sized internal hemorrhoids Recently dx with H.pylori - bx is negative for H pylori Moderate colitis on Bx in cecum, descending, sigmoid and rectum Plan: GI cocktail x1 CT enterography- negative for small bowel pathology Continue Budesonide/mesalamine Continue PPI Patient is seen in collaboration with Dr. Lombardo Subjective: Course reviewed with nursing staff Patient interviewed and examined All labs, imaging and other results reviewed Discussed results of EGD/colonoscopy-biopsy with the patient as well as results of CT enterography. Patient is tolerating diet well. Denies nausea or vomi ting. Complaining of epigastric and mild lower abdominal pain. Exam PHYSICAL EXAMINATION: GENERAL: Alert & oriented x 3, in no acute distress SKIN: No lesions, no stigmata chronic liver disease, no evidence of bleeding diathesis HEAD: Normocephalic, atraumatic, no tenderness. EYES: Pupils equal reactive to light and accommodation, full extraocular movements, sclera clear, non-icteric, no discharge. EARS/NOSE AND THROAT: Ears normal, nose normal, oropharynx normal, oral mem branes well hydrated without lesions. NECK: Supple, no masses, thyroid normal, JVP within normal limits, carotids normal without bruits. CHEST: Inspection within normal limits. CARDIOVASCULAR: Heart: Regular rate and rhythm, no murmurs, gallops or rubs. Peripheral pulses present within normal limits, no cyanosis, clubbing or edemas. No pulsatile abdominal mass RESPIRATORY: Lungs clear to auscultation and percussion, no wheezing, no rubs GASTROINTESTINAL AND LIVER: Abdomen: Soft, epigastric and lower abdominal tenderness, non-distended, no hernias, no masses, no organomegaly, no ascites, no guarding, no rebound tenderness, normoactive bowel sounds. Rectal: Deferred. GENITOURINARY:[Female genitalia within normal limits.] EXTREMITIES: No cyanosis, clubbing or edema. Result Diagram: 03/15/1952403/15/19524 Results 24hrs Laboratory Tests Test 03/18/19 12:18 Iron Level 27 L Total Iron Binding Capacity 243 Percent Iron Saturation 11 L CC: KARLOS GARRISON MD ; Exam/Review of Systems Exam Vitals Vital Signs Date Temp Pulse Resp B/P (MAP) Pulse Ox O2 O2 Flow FiO2 Time Delivery Rate 03/18/19 98.0 67 18 105/56 97 01:56 (72) 03/17/19 Room Air 14:13 03/16/19 10 16:40 Intake and Output 03/17/19 03/17/19 03/18/19 1515:00 23:00 07:00 IntakeIntake Total 400 ml BalanceBalance 400 ml Results Results 24hrs Laboratory Tests Test 03/18/19 12:18 Iron Level 27 L Total Iron Binding Capacity 243 Percent Iron Saturation 11 L Medications Medication Current Medications Ondansetron HCl (Zofran Inj) 4 mg Q6H PRN IV NAUSEA AND/OR VOMITING Last administered on 03/16/19at 08:31; Admin Dose 4 MG; Start 03/14/19 at 05:00 Morphine Sulfate (morphine) 2 mg Q4H PRN IV SEVERE PAIN LEVEL 7-10 Last administered on 03/15/19at 00:19; Admin Dose 2 MG; Start 03/14/19 at 05:00 Acetaminophen (Tylenol Tab) 650 mg Q6H PRN PO MILD PAIN(1-3)OR ELEVATED TEMP Last administered on 03/17/19at 21:05; Admin Dose 650 MG; Start 03/14/19 at 05:00 Mesalamine (Pentasa) 1,000 mg QID PO Last administered on 03/17/19at 21:00; Admin Dose 1,000 MG; Start 03/16/19 at 21:00 Budesonide (Entocort Ec) 9 mg DAILY PO Last administered on 03/17/19at 09:23; Admin Dose 9 MG; Start 03/17/19 at 09:00 Pantoprazole (Protonix Tab) 40 mg DAILY@06 PO Last administered on 03/18/19at 05:36; Admin Dose 40 MG; Start 03/18/19 at 06:00 Al Hydrox/Mg Hydrox/Simethicone (Mag-Al Plus) 30 ml Q6H PRN PO GASTROINTESTINAL UPSET Last administered on 03/18/19at 03:40; Admin Dose 30 ML; Start 03/18/19 at 03:00 CHRISTOPHER CROUCH NP March 18, 2019 14:46
[2019-03-18] MEDS ORDERED: LIDOCAINE/MYLANTA 40 ML BTL PO ONE (15:00)
--- NOTE | 2019-03-18 15:13 | PDOCDIS ---
Discharge Instructions DIAGNOSIS Discharge Diagnosis crohn disease CONDITION [id number] Patient Condition: [id number] Fair HOME CARE INSTRUCTIONS: [id number] Diet Instructions: [id number] Regular [id number] Your diet recommendation is: [id number] low residue ACTIVITY: [id number] Activity Restrictions: [id number] Slowly Increase Activity Rest between Activity Avoid heavy lifting FOLLOW UP/APPOINTMENTS Follow-up Plan f/u PCP in 1 2- weeks fu Dr Alvarez in 2-3 weeks return to ER if has abdominal pain/vommiting/brbpr JANAE BERNAL MD March 18, 2019 15:13
[2019-03-18] MEDS ORDERED: BUDE3CAP PO (15:14)
[2019-03-18] MEDS ORDERED: PANT40TA4 PO (15:14)
[2019-03-18] MEDS ORDERED: MES250 PO (15:14)
--- NOTE | 2019-03-18 23:06 | DS ---
DATE OF ADMISSION: 03/14/2019 DATE OF DISCHARGE: 03/18/2019 HISTORY OF PRESENT ILLNESS AND HOSPITAL COURSE: This is a 53-year-old female with a past medical his tory of arthritis, hyperlipidemia, went to [facility] secondary to severe epigastric pain fo r 1 week. The patient had been having some epigastric pain for the past 1 week intermittently on and off diagnosed her PMD to have H. pylori. She was supposed to have a GI specialist as an outpatient. She was supposed to have EGD and colonoscopy. Pain got worse, she came to the emergency department . She was also having some bright red blood in along with diarrhea for past 4 to 5 months. On arriv al to [place], lipase was 423, sodium 148, potassium 3.8, chloride 107, bicarbonate 22, BUN of 8, creatinine 0.6. LFTs were normal. UA was negative. Abdominal ultrasound showed liver 14 cm, gallbl adder normal, normal abdominal sonographic and was transferred here due to insurance reasons. The pa tient is kept n.p.o., started on IV fluids, pain control, Zofran and proton pump inhibitor. The joceline ent's was also seen by GI consultation, Dr. Alvarez. The patient's Clostridium difficile was checked, which was negative. White count was within normal limits. The patient did not have any fevers. Th e patient had EGD and colonoscopy performed by Dr. Alvarez. EGD showed mild gastritis; however, negat dereck for H. pylori. Colonoscopy shows moderately active colitis involving the left side of the colon in the cecum distribution most consistent with Crohn's disease. Ascending and transverse colon is wi thin normal limit. Terminal ileum is within normal limits. Multiple biopsies were done of the brain and there were also hemorrhoids. The patient was started on budesonide and mesalamine . The patien t also had CT enterography done, which was negative for any small bowel pathology. The patient was f eeling better. Her diarrhea had almost resolved. Currently, abdominal pain has resolved. The patie nt is stable to be discharged home on budesonide and mesalamine. The patient was discussed about the diagnosis of Crohn's disease and will be followed closely with GI as an outpatient. FINAL DISCHARGE DIAGNOSES: 1. Abdominal pain with bright red blood per rectum, status post esophagogastroduodenoscopy and colon oscopy. EGD shows gastritis and colonoscopy shows moderate active colitis on the left sole of the co susana and clipped areas are noted consistent with Crohn's disease and terminal ileum within normal limi ts. Moderate sized internal hemorrhoids. 2. Gastritis status post EGD, which was negative for Helicobacter pylori. 3. Elevated lipase and presumed pancreatitis; however, lipase is normal. DISPOSITION: Hypercholesterolemia. DISCHARGE CONDITION: Stable. DISCHARGE DIET: Low residue. DISCHARGE MEDICATIONS: 1. Protonix 40 mg p.o. daily. 2. Budesonide mg p.o. daily. 3. Mesalamine 1000 mg p.o. b.i.d. PLAN: The patient was instructed to follow up with PCP in 1 to 2 weeks and GI in 2 to 3 weeks. The patient will return to the ER if she has abdominal pain, nausea, vomiting, fevers, chills, bright red per rectum. Dictated By: JANAE MC/CHINTAN Conf#: [id number] DID#: [id number] CC: JHONY ARNOLD MD;*EndCC*
== END 2019-03-18 18:15 | disposition home or self-care (01) | DRG 385 ==
LOC: TEL 03-14 00:55 → 2NE 03-14 23:58 → 5EC 03-15 10:25
PROVIDERS: ADMIT Internal Medicine Nephrology; ATTEND Internal Medicine Nephrology
PROC: 0DDL8ZX Extraction of Transverse Colon, Via Natural or Artificial Opening Endoscopic, Diagnostic (ICD-10-PCS; 2019-03-16)
PROC: 0DDN8ZX Extraction of Sigmoid Colon, Via Natural or Artificial Opening Endoscopic, Diagnostic (ICD-10-PCS; 2019-03-16)
PROC: 0DDP8ZX Extraction of Rectum, Via Natural or Artificial Opening Endoscopic, Diagnostic (ICD-10-PCS; 2019-03-16)
PROC: 0DDB8ZX Extraction of Ileum, Via Natural or Artificial Opening Endoscopic, Diagnostic (ICD-10-PCS; 2019-03-16)
PROC: 0DDM8ZX Extraction of Descending Colon, Via Natural or Artificial Opening Endoscopic, Diagnostic (ICD-10-PCS; 2019-03-16)
PROC: 0DD68ZX Extraction of Stomach, Via Natural or Artificial Opening Endoscopic, Diagnostic (ICD-10-PCS; principal; 2019-03-16 17:00)
PROC: 0DDH8ZX Extraction of Cecum, Via Natural or Artificial Opening Endoscopic, Diagnostic (ICD-10-PCS; 2019-03-16 17:00)
DX: K50.90 Crohn's disease, unspecified, without complications (principal); K85.90 Acute pancreatitis without necrosis or infection, unspecified; K52.9 Noninfective gastroenteritis and colitis, unspecified; K64.8 Other hemorrhoids; K29.70 Gastritis, unspecified, without bleeding; E78.00 Pure hypercholesterolemia, unspecified; E78.5 Hyperlipidemia, unspecified
CPT/HCPCS: 71045; 74177; 74178; 80053; 80061; 82150; 82787; 83540; 83690; 83735; 84100; 84478; 85025; 85610; 86021; 87045; 87075; 88305; 88312; C9113; J1610; J2270; J2405; J7042; Q9967